=== PATIENT | female | born 1995 | race Caucasian/White ===

== ENCOUNTER 2019-07-15 10:45 | Inpatient (IN) | payer BC, OTHER ==
[2019-07-15] VITALS (10 sets, daily range): BP systolic 109–131; BP diastolic 57–93
[~2019-07-15 10:45] MED LIST: AC325T; ACHD5005 PO; AGM875T PO; AMOX500C2 PO; BIRTH CONTROL SHOT; CEPH500C PO; ESCT10T PO; HYDR-700 PO; HYDR1TAB75 PO; IBP200T; IBP200T PO; IBP800T PO; IBUP-1773 PO; LORA10TA7 PO; LRT10T PO; METH4TAB PO; MPR22T TOP; NAPR-243 PO; PENI250T4 PO; PREN1TAB79 PO; PRM25T PO; ROPI1TAB PO; ROPI1TAB2 PO; SERT25TA PO; SULF1TAB35 PO; SULF1TAB38 PO; SULF1TAB7 PO; TOPI50TA2 PO; TRAM50TA2 PO; TRM50T PO
--- NOTE | 2019-07-15 10:45 | NUR ---
HANS SAENZ presented to unit via W/C from ED, accompanied by S/O, HILDA VELAZQUEZ RN AND Ros MONTYOA BREAD ROOM HAND, with c/o LABOR. PT TO BED, SVE DONE PER Noris CORTEZ RN. PT NOTED TO BE , HEAD PRESENTING.
--- NOTE | 2019-07-15 10:47 | NUR ---
DR. GEIGER CALLED PER THIS RN AND NOTIFIED OF RECENT PT ARRIVAL AND PT . EN ROUTE TO FLOOR.
[2019-07-15] MEDS: OXYTOCIN/NORMAL SALINE 500 ML IV SCH ×2 (10:52→11:20)
--- NOTE | 2019-07-15 10:52 | NUR ---
1047: SPONTANEOUS VAGINAL DELIVERY OF A VIABLE FEMALE PER Noris CORTEZ RN. 1048: CORD DOUBLE CLAMPED PER Ros ALLRED RN AND CUT BY FOOswaldo. DR. GEIGER HERE. 1050: CORD BLOOD OBTAINED X2 PER DR. GEIGER. 1051: DR EXAMINING PT'S PERINEUM. NO TEARS NOTED. 1052: SPONTANEOUS VAGINAL DELIVERY OF INTACT PLACENTA. PITOCIN INFUSING @ 999 ML/HR/PUMP.
--- NOTE | 2019-07-15 11:06 | NUR ---
FFU/-2, LT VAG FLOW NOTED, NO CLOTS.
--- NOTE | 2019-07-15 11:07 | NUR ---
STRAIGHT CATH PERFORMED PER THIS RN.
[2019-07-15] MEDS ORDERED: OXYTOCIN/NORMAL SALINE 500 ML IV ONE (11:18)
--- NOTE | 2019-07-15 11:26 | NUR ---
FFU/-2, MODERATE RUBRA LOCHIA, NO CLOTS.
--- NOTE | 2019-07-15 11:39 | NUR ---
LAB TO PT'S BEDSIDE.
--- NOTE | 2019-07-15 11:46 | NUR ---
FFU/-1, LAB REMAINS IN PT'S ROOM.
--- NOTE | 2019-07-15 11:50 | NUR ---
FFU/-1, LT RUBRA LOCHIA, QUARTER SIZE CLOT NOTED.
[2019-07-15 11:58] LABS: BASOPHILS % (AUTO) 0 % (0-10); EOSINOPHILS # (AUTO) 0.1 10^3/uL (0.0-0.3); EOSINOPHILS % (AUTO) 0 % (0-10); HEMATOCRIT 35 % (35-52); HEMOGLOBIN 11.2 G/DL (11.5-16.0); LYMPHOCYTES % (AUTO) 12 % (12-44); MEAN CORPUSCULAR HEMOGLOBIN 28 PG (25-34); MEAN CORPUSCULAR HGB CONC 33 G/DL (32-36); MEAN CORPUSCULAR VOLUME 87 FL (80-99); MEAN PLATELET VOLUME 10.5 FL (7.4-10.4); MONOCYTES # (AUTO) 1.2 X 10^3 (0.0-1.0); MONOCYTES % (AUTO) 7 % (0-12); NEUTROPHILS # (AUTO) 14.2 X 10^3 (1.8-7.8); NEUTROPHILS % (AUTO) 81 % (42-75); PLATELET COUNT 342 10^3/uL (130-400); RED CELL DISTRIBUTION WIDTH 13.4 % (10.0-14.5); WHITE BLOOD COUNT 17.4 10^3/uL (4.3-11.0)
[2019-07-15] MEDS ORDERED: WITCH HAZEL(TUCKS) 40 EA JAR TOP PRN (12:00)
[2019-07-15] MEDS ORDERED: MEASLES,MUMPS,RUBELLA 1 EA INJ SQ ONE (12:00)
[2019-07-15] MEDS ORDERED: TETANUS,DIPTH,PERTUSS P/F (BOOSTRIX) 0.5 ML VIAL IM ONE (12:00)
[2019-07-15] MEDS ORDERED: BENZOCAINE/MENTHOL (DERMOPLAST) 56 ML CAN TP PRN (12:00)
--- NOTE | 2019-07-15 12:09 | NUR ---
INITIAL SHIFT ASSESSMENT COMPLETED; SEE INTERVENTION FOR FURTHER.
--- NOTE | 2019-07-15 12:15 | History & Physical-OB ---
OB - Chief Complaint & HPI Date/Time Date of Admission: Date of Admission: Jul 15, 2019 at 10:45 Date seen by a Provider: Jul 15, 2019 Time Seen by a Provider: 11:00 Chief Complaint/History OB-Reason for Admission/Chief: precip delivery Hx : 3 Hx Para: 2 Expected Date of Delivery: Jul 29, 2019 Gestational Age in Weeks: 37 Gestational Age in Days: 6 Allergies and Home Medications Allergies Coded Allergies: codeine (Verified Allergy, Unknown, 09/01/07) Home Medications Hydrocodone Bit/Acetaminophen 1 Each Tablet, 1 TAB PO Q4H PRN for PAIN Prescribed by: BORA AMIN on 11/15/15 0740 Ibuprofen 600 Mg Tablet, 600 MG PO Q6H Prescribed by: BORA AMIN on 11/15/15 0740 Vit W-Ca,Fe,FA(<1 mg) 1 Each Tablet, 1 EACH PO DAILY, (Reported) Sulfamethoxazole/Trimethoprim 1 Each Tablet, 1 EACH PO BID Prescribed by: MICHAEL CAGE on 07/13/18 1331 Patient Home Medication List Home Medication List Reviewed: Yes OB - History Hx of Present Care: Yes Other Concerns: Patient expresses no concerns, care with [facility] however I do not have her records immediately available at time of admission and eval Obstetrical History Hx Termination: No Hx Multiple Gestation: No Hx Stillbirth: No Hx Complication: No Hx Induced Hypertens: No Hx Maternal Gestational Diabet: No Delivery History Hx Dystocia: No Hx Large For Gestational Age I: No Hx Small for Gestational Age I: No Hx Section: No Hx Vaginal Delivery Post C-Sec: No Hx Blood Disorders: No Adverse Rxn to Tranfusion: No Patient Past Medical History No chronic medical problems Social History/Family History HIV/AIDS: No Sexually Transmitted Disease: No Immunizations Hepatitis B: Yes Date of Pneumonia Vaccine: Nov 19, 2009 Date of Influenza Vaccine: Aug 25, 2015 OB - Admission Exam Physical Exam HEENT: NCAT Heart: Rhythm Normal Lungs: Clear Abdomen: Gravid Extremities: Normal Reflexes: Normal Cervical Dilatation: other Labs Laboratory Tests Test 07/15/19 11:07 07/15/19 11:40 Range/Units White Blood Count 17.4 H 4.3-11.0 10^3/uL Red Blood Count 3.95 L 4.35-5.85 10^6/uL Hemoglobin 11.2 L 11.5-16.0 G/DL Hematocrit 35 35-52 % Mean Corpuscular Volume 87 80-99 FL Mean Corpuscular Hemoglobin 28 25-34 PG Mean Corpuscular Hemoglobin Concent 33 32-36 G/DL Red Cell Distribution Width 13.4 10.0-14.5 % Platelet Count 342 130-400 10^3/uL Mean Platelet Volume 10.5 H 7.4-10.4 FL Neutrophils (%) (Auto) 81 H 42-75 % Lymphocytes (%) (Auto) 12 12-44 % Monocytes (%) (Auto) 7 0-12 % Eosinophils (%) (Auto) 0 0-10 % Basophils (%) (Auto) 0 0-10 % Neutrophils # (Auto) 14.2 H 1.8-7.8 X 10^3 Lymphocytes # (Auto) 2.0 1.0-4.0 X 10^3 Monocytes # (Auto) 1.2 H 0.0-1.0 X 10^3 Eosinophils # (Auto) 0.1 0.0-0.3 10^3/uL Basophils # (Auto) 0.0 0.0-0.1 10^3/uL OB - Assessment/Plan/Diagnosis Assessment Admission Dx 24 yo @ 37.6 weeks Precipitous delivery GBS pos Admission Status: Inpatient Order (span 2 midnights) Reason for Inpatient Admission: Delivery of infant at term Plan Plan: Expectant Management ALEX GEIGER DO Jul 15, 2019 12:15
--- NOTE | 2019-07-15 12:17 | NUR ---
FFU/-1, LT RUBRA LOCHIA, NO CLOTS NOTED.
[2019-07-15 12:23] LABS: AMPHETAMINE SCREEN, URINE POSITIVE (NEGATIVE); BARBITURATE SCREEN URINE NEGATIVE (NEGATIVE); BENZODIAZEPINES SCREEN URINE NEGATIVE (NEGATIVE); BILIRUBIN,URINE NEGATIVE (NEGATIVE); CANNABINOID SCREEN, URINE POSITIVE (NEGATIVE); CLARITY,URINE CLEAR; COCAINE SCREEN URINE NEGATIVE (NEGATIVE); COLOR,URINE YELLOW; GLUCOSE, URINE (UA) NEGATIVE (NEGATIVE); KETONES,URINE NEGATIVE (NEGATIVE); LEUKOCYTE ESTERASE ,URINE 1+ (NEGATIVE); METHADONE STAT NEGATIVE (NEGATIVE); METHAMPHETAMINE SCREEN URINE S POSITIVE (NEGATIVE); NITRITE,URINE NEGATIVE (NEGATIVE); OPIATE SCREEN URINE NEGATIVE (NEGATIVE); OXYCODONE STAT NEGATIVE (NEGATIVE); PH,URINE 6 (5-9); PROPOXYPHENE STAT NEGATIVE (NEGATIVE); PROTEIN,URINE 2+ (NEGATIVE); TRICYCLIC ANTIDEPRESSANTS SCRE NEGATIVE (NEGATIVE); UROBILINOGEN,URINE NORMAL (NORMAL)
--- NOTE | 2019-07-15 12:27 | OB Labor & Delivery Record ---
L&D History Date of Service Date of Service: Jul 15, 2019 History Expected Date of Delivery: Jul 29, 2019 Gestational Age in Weeks: 37 Hx : 3 Hx Para: 2 Complications Events: Routine care (with [facility] per patient) Operative Indications (Cesarea: N/A-Vaginal Delivery Intrapartal Events: Precipitous Labor < 3 hrs L&D Stage1 Progress/Notes Stage 1 not witnessed. I was contacted for precip delivery and ran to the unit to find RN delivering infant in bed. L&D Stage2 Monitors and Tracing Position: Right Occiput Anterior Presentation: Vertex Cord Descript/Complications Complications Nuchal cord reduced x 1 by toggle press folder and feeder Type Delivery Method: Spontaneous Vaginal Anterior Shoulder: Right Episiotomy/Perineal Laceration Laceraction(s)/Extensions: No Episiotomy Description: None Condition of Infant Delivery Notes Live female infant, weight and APGARs pending Condition of Condition of Infant: Living Exam: No Observed Abnormalities Resuscitation Resuscitation: N/A - Spontaneous Resp L&D Stage3 Stage Three Stage III Date: Jul 15, 2019 Pictocin Pitocin Administration Comment: 30 mu wide open at delivery of placenta Placenta Delivery Placenta Delivery: Spontaneous Delivery Summary Summary Estimated blood loss (mL): 250 Attending at delivery: lAex Geiger DO Condition of Delivery Examined: Cervix Examined, Uterus Explored Post Hemorrhage: No Condition of Mother stable Condition of (s) stable ALEX GEIGER DO Jul 15, 2019 12:27
[2019-07-15 12:30] LABS: BACTERIA,URINE TRACE /HPF; RBC,URINE 25-50 /HPF
--- NOTE | 2019-07-15 12:50 | NUR ---
VISITORS TO PT'S BEDSIDE.
--- NOTE | 2019-07-15 13:16 | NUR ---
THIS RN CALLED [facility] TO OBTAIN MORE RECORDS. NO ANSWER, VOICEMAIL MESSAGE LEFT.
--- NOTE | 2019-07-15 13:24 | NUR ---
PT UP TO THE BATHROOM. + VOID, + PERICARE PER PT. NEW GOWN ON. FAMILY AT PT'S BEDSIDE.
[2019-07-15] MEDS ORDERED: CATHETER FLUSH 10 ML SYR IV SCH ×2 (14:00)
--- NOTE | 2019-07-15 14:40 | NUR ---
BLAIRE, LEARNING AND DEVELOPMENT MANAGER, JUST LEFT ROOM AFTER TALKING WITH PT.
[2019-07-15] MEDS: IBUPROFEN 600 MG (MOTRIN) TAB PO SCH ×2 (14:57→20:35)
--- NOTE | 2019-07-15 14:57 | NUR ---
PT AMBULATES FROM WS-317 TO WS-308 IN STABLE CONDITION ACC BY THIS RN, S/O AND FAMILY. PT TO BED. ROUTINE MOTRIN GIVEN PO; SEE EMAR FOR FURTHER. PT DENIES ANY NEEDS OR QUESTIONS AT THIS TIME. CALL LIGHT WITHIN REACH.
--- NOTE | 2019-07-15 15:06 | NUR ---
CM/SS met with the patient in regards to the SS consult. Patient stated that she had been staying here this summer with her grandmother ([place]) as she wanted to have this baby at this hospital, she had her two other children here. She has a 7 year old daughter and a 3 year old son. 's name Robert Major. Patient was positive for methamphetamine, amphetamines, and thc. She had previous positive uds on 06/04 at [facility], positive for methamphetamines, amphetamines, and thc. She reported she was not in any community services in [place]. She stated that she was looking into alcohol / drug treatment. A DCF report was made, intake # [id number].
--- NOTE | 2019-07-15 16:46 | NUR ---
INFANT TO PT'S BEDSIDE. VS OBTAINED. PT PREPPING TO FEED INFANT. FAMILY AT THE BEDSIDE. NO NEEDS VOICED.
--- NOTE | 2019-07-15 18:20 | NUR ---
PT REQUESTING HER MOTRIN; INFORMED THAT IT IS NOT DUE UNTIL 2100. WARM BLANKET PROVIDED FOR COMFORT. NO FURTHER NEEDS VOICED.
[2019-07-15] MEDS: DOCUSATE SODIUM 100 MG (COLACE) CAP PO SCH (20:35)
[2019-07-16] VITALS: BP 109/64
[2019-07-16] MEDS: IBUPROFEN 600 MG (MOTRIN) TAB PO SCH ×3 (02:56→15:53)
[2019-07-16 05:39] LABS: BASOPHILS % (AUTO) 0 % (0-10); EOSINOPHILS # (AUTO) 0.1 10^3/uL (0.0-0.3); EOSINOPHILS % (AUTO) 1 % (0-10); HEMATOCRIT 29 % (35-52); HEMOGLOBIN 9.5 G/DL (11.5-16.0); LYMPHOCYTES # (AUTO) 2.5 X 10^3 (1.0-4.0); LYMPHOCYTES % (AUTO) 21 % (12-44); MEAN CORPUSCULAR HEMOGLOBIN 29 PG (25-34); MEAN CORPUSCULAR HGB CONC 33 G/DL (32-36); MEAN CORPUSCULAR VOLUME 88 FL (80-99); MEAN PLATELET VOLUME 10.9 FL (7.4-10.4); MONOCYTES % (AUTO) 8 % (0-12); NEUTROPHILS # (AUTO) 8.4 X 10^3 (1.8-7.8); NEUTROPHILS % (AUTO) 70 % (42-75); PLATELET COUNT 265 10^3/uL (130-400); RED CELL DISTRIBUTION WIDTH 13.1 % (10.0-14.5); WHITE BLOOD COUNT 12.1 10^3/uL (4.3-11.0)
[2019-07-16 05:45] VITALS: BP 104/75
[2019-07-16] MEDS ORDERED: FERROUS SULF 325 MG (IRON) TAB PO SCH (07:00)
[2019-07-16] MEDS ORDERED: PRENATAL VITAMIN 1 EA TAB PO SCH (07:00)
[2019-07-16 08:00] VITALS: BP 111/62
--- NOTE | 2019-07-16 08:17 | Postpartum Progress Note ---
Note Note Day # 1 Subjective: Patient is without complaints. Ambulating, voiding. Tolerating a regular diet without nausea or vomiting. Normal lochia. Pain is well controlled with oral pain medications. Objective: Physical Exam: General - Alert and oriented, no apparent distress Abdomen - Soft, appropriately tender to palpation, non-distended, fundus firm at umbilicus Extremities - no edema, negative Ashley's bilaterally Assessment: PPD 1 Precip NVD Acute blood loss anemia Plan: Routine care. Encourage breast feeding. Encourage ambulation. Ferrous sulfate supplementation. Plan for discharge today Vitals - Labs Vital Signs - I&O Vital Signs Date Time Temp Pulse Resp B/P (MAP) Pulse Ox O2 Delivery O2 Flow Rate FiO2 07/16/19 05:45 98.9 87 20 104/75 (85) Room Air 07/16/19 00:00 97.8 80 20 109/64 (79) Room Air 07/15/19 21:00 Room Air 07/15/19 20:00 97.8 87 20 109/74 (86) 100 Room Air 07/15/19 16:46 98.0 80 18 131/70 (90) 100 Room Air 07/15/19 13:17 89 18 119/64 (82) Room Air 07/15/19 13:02 91 18 122/70 (87) Room Air 07/15/19 12:47 73 18 123/81 (95) Room Air 07/15/19 12:32 73 18 120/73 (89) Room Air 07/15/19 12:17 68 18 116/57 (76) Room Air 07/15/19 12:02 96.8 67 18 117/70 (86) Room Air 07/15/19 11:48 77 18 126/64 (84) Room Air 07/15/19 11:46 96.5 07/15/19 11:27 95.3 07/15/19 11:11 94.8 07/15/19 11:08 118 18 128/93 (105) Room Air I & O 07/16/19 07:00 Intake Total 1500 ml Balance 1500 ml Labs Laboratory Tests 07/15/19 11:07: Urine Color YELLOW, Urine Clarity CLEAR, Urine pH 6, Urine Specific [place] 1.015L, Urine Protein 2+H, Urine Glucose (UA) NEGATIVE, Urine Ketones NEGATIVE, Urine Nitrite NEGATIVE, Urine Bilirubin NEGATIVE, Urine Urobilinogen NORMAL, Urine Leukocyte Esterase 1+H, Urine RBC (Auto) 4+H, Urine RBC 25-50H, Urine WBC 5-10H, Urine Squamous Epithelial Cells 5-10, Urine Crystals NONE, Urine Bacteria TRACE, Urine Casts NONE, Urine Mucus NEGATIVE, Urine Culture Indicated YES, Urine Opiates Screen NEGATIVE, Urine Oxycodone Screen NEGATIVE, Urine Methadone Screen NEGATIVE, Urine Propoxyphene Screen NEGATIVE, Urine Barbiturates Screen NEGATIVE, Ur Tricyclic Antidepressants Screen NEGATIVE, Urine Phencyclidine Screen NEGATIVE, Urine Amphetamines Screen POSITIVEH, Urine Methamphetamines Screen POSITIVEH, Urine Benzodiazepines Screen NEGATIVE, Urine Cocaine Screen NEGATIVE, Urine Cannabinoids Screen POSITIVEH 07/15/19 11:40: White Blood Count 17.4H, Red Blood Count 3.95L, Hemoglobin 11.2L, Hematocrit 35, Mean Corpuscular Volume 87, Mean Corpuscular Hemoglobin 28, Mean Corpuscular Hemoglobin Concent 33, Red Cell Distribution Width 13.4, Platelet Count 342, Mean Platelet Volume 10.5H, Neutrophils (%) (Auto) 81H, Lymphocytes (%) (Auto) 12, Monocytes (%) (Auto) 7, Eosinophils (%) (Auto) 0, Basophils (%) (Auto) 0, Neutrophils # (Auto) 14.2H, Lymphocytes # (Auto) 2.0, Monocytes # (Auto) 1.2H, Eosinophils # (Auto) 0.1, Basophils # (Auto) 0.0 07/16/19 05:09: White Blood Count 12.1H, Red Blood Count 3.30L, Hemoglobin 9.5L, Hematocrit 29L, Mean Corpuscular Volume 88, Mean Corpuscular Hemoglobin 29, Mean Corpuscular Hemoglobin Concent 33, Red Cell Distribution Width 13.1, Platelet Count 265, Mean Platelet Volume 10.9H, Neutrophils (%) (Auto) 70, Lymphocytes (%) (Auto) 21, Monocytes (%) (Auto) 8, Eosinophils (%) (Auto) 1, Basophils (%) (Auto) 0, Neutrophils # (Auto) 8.4H, Lymphocytes # (Auto) 2.5, Monocytes # (Auto) 1.0, Eosinophils # (Auto) 0.1, Basophils # (Auto) 0.0 ALEX GEIGER DO Jul 16, 2019 08:17
[2019-07-16] MEDS ORDERED: IBUP-844 PO (08:37)
[2019-07-16] MEDS ORDERED: Benzocaine/Menthol TP (08:37)
[2019-07-16] MEDS ORDERED: DOCU100C37 PO (08:37)
--- NOTE | 2019-07-16 08:39 | Discharge Inst-Women's Service ---
Discharge Inst-Women's Serv Depart Medication/Instructions New, Converted or Re-Newed RX: RX on Chart Final Diagnosis PPD 1 NVD Problems Reviewed?: Yes Consults/Follow Up Additional Follow Up: Yes Orders/Referrals Dr. Choudhary in 6 weeks Activity Driving Instructions: No Driving for 1 Week Nothing Inside Vagina: No Douching, No [place], No Tampons Diet Discharge Diet: No Restrictions Symptoms to Report to : Bleeding Excessive, Pain Increased, Fever Over 101 Degrees F, Vaginal Bleeding Increase, Questions/Concerns For Any Problems or Questions: Contact Your Physician ALEX GEIGER DO Jul 16, 2019 08:39
--- NOTE | 2019-07-16 09:30 | NUR ---
A.M. ASSESSMENT COMPLETED. VSS. DOING WELL.
[2019-07-16] MEDS: DOCUSATE SODIUM 100 MG (COLACE) CAP PO SCH (09:47)
[2019-07-16] MEDS ORDERED: MEASLES,MUMPS,RUBELLA 1 EA INJ ONE (10:00)
--- NOTE | 2019-07-16 10:14 | NUR ---
MMR GIVEN SUBQ IN LEFT UPPER ARM. SITE CLEAR. PT HAS HAD THE TDAP VACCINE.
--- NOTE | 2019-07-16 11:00 | NUR ---
CARING FOR INFANT IN ROOM. GOOD INTERACTION NOTED.
[2019-07-16 12:00] VITALS: BP 109/74
--- NOTE | 2019-07-16 12:44 | NUR ---
CM/SS had a visit with the patient. The patient and her spouse were present in the room. CM/SS discussed how the patient was doing and discussed additional resources available to the patient and family. The patient appeared to feel remorseful and stated she wanted to do what is best for the baby.The patient stated that she had not called to make an appointment with [facility] drug/alcohol intake at this time. CM/SS suggested calling today to make an appointment., provided contact information for [facility]. The patient stated that she has prior and current drug usage for last year but has not been to treatment. DCF worker will be here for a visit today 07/16. The DCF worker will be Jama. Will continue to follow.
--- NOTE | 2019-07-16 13:50 | NUR ---
DCF HERE TO SEE PT.
--- NOTE | 2019-07-16 15:03 | NUR ---
CM/SS met with DCF worker Jama Acosta and patient. The DCF worker discussed with pt why a report had been made. The patient appears to show emotions of remorse and determination to follow through with treatment. The patient has made an appointment with [facility] for alcohol and drug intake on Sunday and 1p.m. The patient was very cooperative with the DCF worker to sign a safety contract and answer questions openly. [facility] has set up a home visit for the patient at her grandmothers home until they move back to [place]. The patient has agreed to meet with family preservation and healthy families to assist in the process. [facility] will update CM/SS after home visit has been completed.
[2019-07-16 15:37] VITALS: BP 119/77
--- NOTE | 2019-07-16 15:59 | NUR ---
RESTING IN BED. INFANT ASLEEP IN OPEN CRIB. ROUTINE MOTRIN GIVEN.
--- NOTE | 2019-07-16 18:55 | NUR ---
DISCHARGE INSTRUCTIONS REVIEWED WITH COPY TO PT. STATES UNDERSTANDING OF ALL INSTRUCTIONS AND NEED TO F/U SCHEDULED AND NEEDED.
[2019-07-16 19:00] VITALS: BP 119/77
--- NOTE | 2019-07-16 19:00 | NUR ---
DISMISSED FROM WS IN STABLE CONDITION. PT TO REMAIN IN THIS ROOM A ROOMING-IN MOM R/T HAVING TO STAY IN THE HOSPITAL.
== END 2019-07-16 19:00 | disposition home or self-care (01) | DRG 807 ==
LOC: LDRP 10:45
PROVIDERS: ADMIT Obstetrics & Gynecology; ATTEND Obstetrics & Gynecology
PROC: 10E0XZZ Delivery of Products of Conception, External Approach (ICD-10-PCS; principal; 2019-07-15)
DX: O62.3 Precipitate labor (principal); O99.824 Streptococcus B carrier state complicating childbirth; O69.81X0 Labor and delivery complicated by cord around neck, without compression, not applicable or unspecified; Z37.0 Single live birth; Z3A.37 37 weeks gestation of pregnancy; Z23 Encounter for immunization
CPT/HCPCS: 36415; 80306; 81000; 85025; 86850; 86900; 86901; 87088; 88307; 90707